=== PATIENT | female | born 1975 ===

== ENCOUNTER 2022-07-05 06:04 | Day surgery (SDC) | payer OTHER ==
[~2022-07-05] VITALS: Ht 162.6 cm; Wt 78.5 kg
[~2022-07-05 06:04] MED LIST: ATORVASTATIN CA20 MG PO; COZAAR50 MG PO; METFORMIN HCL500 M3 PO; PANTOPRAZOLE SO20 MG PO
[2022-07-05] MEDS ORDERED: IBU600 MG PO (08:52)
== END 2022-07-05 11:25 | disposition home or self-care (01) ==
LOC: CIR.AMB 06:04
PROVIDERS: ATTEND Obstetrics & Gynecology Gynecology
DX: N84.0 Polyp of corpus uteri (principal); N72 Inflammatory disease of cervix uteri; Z20.822 Contact with and (suspected) exposure to COVID-19; I10 Essential (primary) hypertension